=== PATIENT | male | born 1960 ===

== ENCOUNTER 2016-12-22 11:45 | Observation (INO) | payer OTHER ==
[~2016-12-22] VITALS: Ht 175.3 cm; Wt 71.7 kg
[2017-01-05] VITALS (13 sets, daily range): BP systolic 99–144; BP diastolic 65–80
[2017-01-05] MEDS ORDERED: Vancomycin 1gm/D5W 275ml IVPB ONE ×2 (06:00)
[2017-01-05] MEDS ORDERED: Pantoprazole Inj IVP ONE (06:00)
[2017-01-05] MEDS ORDERED: LISINOPRIL40 MG ORAL (06:22)
[2017-01-05] MEDS ORDERED: CARBAMAZEPINE200 M4 ORAL (06:22)
[2017-01-05] MEDS ORDERED: Thrombin 5000 units TOPIC ONE ×2 (06:56→07:51)
[2017-01-05] MEDS ORDERED: Gelfoam Absorbable 1gm powder pkt TOPIC ONE (06:58)
[2017-01-05] MEDS ORDERED: Bacitracin 50000 Units Vial ONE (06:58)
[2017-01-05] MEDS ORDERED: Bupivacaine w/Epi 0.5% 30ml Vial INJ ONE (06:58)
[2017-01-05] MEDS ORDERED: Thrombin 5000 units spray kit TOPIC ONE (06:58)
[2017-01-05] MEDS ORDERED: Bacitracin Oint 15gm Tube TOPIC ONE (07:01)
[2017-01-05] MEDS ORDERED: Neostigmine 1mg/ml 10ml Inj ONE (07:30)
[2017-01-05] MEDS ORDERED: Labetalol 5mg/ml 20ml vial IV ONE (07:30)
[2017-01-05] MEDS ORDERED: Ketorolac 30mg Inj ONE (07:30)
[2017-01-05] MEDS ORDERED: Succinylcholine 20mg/ml 10ml vial ONE (07:30)
[2017-01-05] MEDS ORDERED: Dexamethasone 4mg/ml vial ONE (07:30)
[2017-01-05] MEDS ORDERED: Propofol 10mg/ml 100ml btl IV ONE (07:30)
[2017-01-05] MEDS ORDERED: Glycopyrrolate 0.2mg/ml 1ml Vial ONE (07:30)
[2017-01-05] MEDS ORDERED: LR 1000ml ONE (07:30)
[2017-01-05] MEDS ORDERED: fentaNYL 100 mcg/2 mL IV ONE (07:30)
[2017-01-05] MEDS ORDERED: Sterile Water Irrig 1000ml IRRIG ONE (07:30)
[2017-01-05] MEDS ORDERED: NS Irrig 1000ml ONE (07:30)
[2017-01-05] MEDS ORDERED: Zemuron 50mg/5ml Inj IV ONE (07:30)
[2017-01-05] MEDS ORDERED: Midazolam 2mg/2ml Inj ONE (07:30)
[2017-01-05] MEDS ORDERED: NS Irrig 1000ml IRRIG ONE (07:40)
--- NOTE | 2017-01-05 07:46 | Pre-Procedure Note/Attestation ---
Pre-Procedure Note/Attestation Complete Prior to Procedure Planned Procedure: left Procedure Narrative: Posterior Laminoforaminotomy Cervical five-six on the left side. Attestation I attest that I discussed the nature of the procedure; its benefits; risks and complications; and alternatives (and the risks and benefits of such alternatives ), prior to the procedure, with the patient (or the patient's legal unit support representative). I attest that, if there was a reasonable possibility of needing a blood transfusion, the patient (or the patient's legal unit support representative) was given the [facility] standardized written summary, pursuant to the Willy Minerva Blood Safety Act ([place] Health and Safety Code # 1645, as amended). I attest that I re-evaluated the patient just prior to the surgery and that there has been no change in the patient's H&P, except as documented below: JUDITH GOLD Jan 05, 2017 07:46
[2017-01-05] MEDS ORDERED: LR 1000ml 1,000 ML IVLG SCH (09:08)
--- NOTE | 2017-01-05 09:08 | Anethesia Preoperative Eval ---
Anesthesia Pre-op PMH/ROS General Date of Evaluation: Jan 05, 2017 Time of Evaluation: 07:12 Anesthesiologist: Reanna ASA Score: ASA 2 Mallampati Score Class I : Soft palate, uvula, fauces, pillars visible Class II: Soft palate, uvula, fauces visible Class III: Soft palate, base of uvula visible Class IV: Only hard plate visible Mallampati Classification: Class II Surgeon: Bigg Diagnosis: Cervical radiculopathy Surgical Procedure: posterior cervical laminotomy and foraminotomy C5-C6 Anesthesia History: none Social History: current smoker Family History: no anesthesia problems Allergies: Coded Allergies: No Known Allergies (Unverified , 01/04/17) Medications: see eMAR Past Medical History Cardiovascular: Reports: HTN, Denies: CAD, ME, arrhythmia, other, valve dz Gastrointestinal/Genitourinary: Reports: GERD, Denies: CRI, ESRD, other Neurologic/Psychiatric: Reports: other - chronic pain, Denies: CVA, TIA, dementia, depression/anxiety Endocrine: Denies: DM, hypothyroidism, other, steroids HEENT: Denies: EKLUTNA (L), EKLUTNA (R), cataract (L), cataract (R), glaucoma, other Hematology/Immune: Denies: DVT, anemia, bleeding disorder, other Musculoskeletal/Integumentary: Denies: DDD, DJD, OA, RA, edema, other PMH Narrative: as above PSxH Narrative: ORIF of ankle Fx. ACDF C6-C7 Anesthesia Pre-op Phys. Exam Physician Exam Last Vital Signs Date Time Temp Pulse Resp B/P Pulse Ox O2 Delivery O2 Flow Rate FiO2 01/05/17 06:19 97.5 77 17 144/80 99 Room Air Constitutional: NAD Neurologic: CN 2-12 intact Cardiovascular: RRR, no M/R/G Respiratory: CTA Gastrointestinal: S/NT/ND Airway Exam Mallampati Score: Class II MO: full Neck: stiff ROM: limited Teeth: intact Dentures: no lower, no upper Anesthesia Pre-op A/P Labs see chart Studies Pre-op Studies: EKG - NSR, CXR - WNL Risk Assessment & Plan Assessment: ASA 2 Plan: GA with Ett prone position Neuromonitoring Status Change Before Surgery: No Pre-Antibiotics Drug: Vancomycin 1gr. Gentamycin 80mg. Given Within 1 Hr of Incision: Yes Time Given: 08:46 KEE GARY M.D. Jan 05, 2017 09:08
[2017-01-05] MEDS ORDERED: Ketorolac 30mg Inj IV PRN (09:15)
[2017-01-05] MEDS ORDERED: Midazolam 2mg/2ml Inj IVP PRN (09:15)
[2017-01-05] MEDS ORDERED: Hydromorphone 0.5mg/0.5ml inj IVP PRN (09:15)
[2017-01-05] MEDS ORDERED: Metoclopramide 10mg/2ml Inj IVP PRN (09:15)
[2017-01-05] MEDS ORDERED: DiphenhydrAMINE 50mg/ml Inj IVP PRN (09:15)
[2017-01-05] MEDS ORDERED: Meperidine 25mg/0.5ml Inj (FOR RIGORS ONLY) IV PRN (09:15)
--- NOTE | 2017-01-05 09:53 | Brief Operative Note ---
Immediate Post Operative Note Operative Note Chief Complaint: neck pain and left upper extremity weakness and numbness Pre-op Diagnosis: Severe foraminal stenosis left C5-6 level Left upper extremity radiculopathy lack of improvement from conservative care Procedure: 1. L C5 laminotomy, medial facetectomy and foraminotomy 2. Internal neurolysis of left C6 root 3. Application of epidural fat graft 5.Intra-operative supervision, use and interpretation of fluoroscopy 4. Microdissection 6. Neuromonitoring SSEPs and dermatomal monitoring 7. Application of Torres head of merchandise buying Plastic surgical closure of cervical wound 3.0 cm Post-op Diagnosis: same as pre-op Findings: consistent w/pre-op dx studies Surgeon: Adriana Gold MD Case Assistant: Wicho Link MD Anesthesiologist: Dr. Reanna KIDD Anesthesia: general Specimen: none Complications: none Condition: stable Fluids: 500 cc Estimated Blood Loss: minimal Drains: none Implant(s) used?: No ADRIANA GOLD Jan 05, 2017 09:53
--- NOTE | 2017-01-05 10:03 | Immediate Post-Op Evaluation ---
Immediate Post-Op Evalulation Immediate Post-Op Evalulation Procedure: Posterior cervical laminotomy C5-C6 Date of Evaluation: Jan 05, 2017 Time of Evaluation: 10:01 IV Fluids: 1000 Blood Products: none Estimated Blood Loss: <50 Urinary Output: none Blood Pressure Systolic: 123 Blood Pressure Diastolic: 73 Pulse Rate: 86 Respiratory Rate: 20 O2 Sat by Pulse Oximetry: 99 Temperature (Fahrenheit): 97.6 Pain Score (1-10): 2 Nausea: No Vomiting: No Complications none Patient Status: reacts, patent, none Hydration Status: adequate KEE GARY M.D. Jan 05, 2017 10:03
--- NOTE | 2017-01-05 10:12 | General Progress Note ---
Progress Note Progress Note Neurosurgery POST OP S/ comfortable. No arm pain. O/ VS: Last 24 Hour Vital Signs Date Time Temp Pulse Resp B/P Pulse Ox O2 Delivery O2 Flow Rate FiO2 01/05/17 10:04 65 19 111/74 99 Simple Mask 6.0 01/05/17 10:03 86 20 99 01/05/17 09:59 71 15 109/74 99 Simple Mask 6.0 01/05/17 09:54 97.2 77 15 99/65 99 Simple Mask 6.0 01/05/17 06:19 97.5 77 17 144/80 99 Room Air Alert and oriented x 3 Moves all extremities well soft cervical collar in place doing well observe. JUDITH GOLD Jan 05, 2017 10:12
[2017-01-05] MEDS ORDERED: Milk of Magnesia 30ml Ud ORAL PRN (10:15)
[2017-01-05] MEDS ORDERED: Cyclobenzaprine 10mg Tab ORAL PRN (10:15)
[2017-01-05] MEDS ORDERED: Norco 7.5mg/325mg tab ORAL PRN (12:00)
[2017-01-05] MEDS ORDERED: HYDROmorphone 1mg/ml Carpuject IVP PRN (12:00)
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
[2017-01-05] MEDS ORDERED: NS w/KCl 20mEq 1,000 ML IV SCH (13:30)
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
--- NOTE | 2017-01-05 14:46 | Diagnostic Imaging Report ---
Indication: Neck Pain Findings: Single fluoroscopic view of the cervical spine obtained. Instrument noted posterior to C5. Partial visualization of the C5-6 and compression plate noted. Endotracheal tube is present on this film. Impression: Intraoperative imaging
[2017-01-05] MEDS ORDERED: ceFAZolin sod 1 GM in D5W 55 ML IV SCH (16:30)
[2017-01-05] MEDS ORDERED: Docusate 100mg cap ORAL SCH (18:00)
[2017-01-05] MEDS ORDERED: Pericolace tab ORAL SCH (18:00)
[2017-01-05] MEDS ORDERED: carBAMazepine 200mg tab ORAL SCH (21:00)
[2017-01-06] MEDS ORDERED: Lisinopril 20mg tab ORAL SCH (09:00)
== END 2017-01-05 21:00 | disposition home or self-care (01) ==
LOC: INTOOBSV 01-05 05:46 → SDSOVERFLO 01-05 05:46 → 3E 01-05 11:21
DX: M48.02 Spinal stenosis, cervical region (principal); M54.12 Radiculopathy, cervical region; G89.29 Other chronic pain; I10 Essential (primary) hypertension; K21.9 Gastro-esophageal reflux disease without esophagitis; M25.50 Pain in unspecified joint; F17.200 Nicotine dependence, unspecified, uncomplicated; Z85.46 Personal history of malignant neoplasm of prostate
CPT/HCPCS: 36415; 62281; 63045; 63048; 72040; 76001; 86850; 86900; 86901; 87081; C9113; G0378; G0379; J0330; J0690; J1100; J1580; J1885; J2250; J2704; J2710; J3010; J3370; J7120; 94003; 94150; C9399